=== PATIENT | male | born 1995 | race Caucasian/White ===

== ENCOUNTER 2025-04-24 02:08 | Inpatient (IN) | payer OTHER, SELFPAY ==
[2025-04-24] VITALS (11 sets, daily range): BP systolic 95–168; BP diastolic 50–86; PULSE 57–89; RESP 10–20; TEMP 36.3–37; O2SAT 94–99; BMI 24.4
--- NOTE | 2025-04-24 | ECG_ITS ---
Test Reason : CP Blood Pressure : */* mmHG Vent. Rate : 92 BPM Atrial Rate : 92 BPM P-R Int : 176 ms QRS Dur : 108 ms QT Int : 370 ms P-R-T Axes : 33 62 44 degrees QTcB Int : 457 ms Normal sinus rhythm Normal ECG No previous ECGs available Referred By: Generic ED Physician Electronically Signed By: SABRINA JEREZ MD
--- NOTE | ~2025-04-24 | XR_ITS ---
CLINICAL HISTORY: CHEST PAIN 1 view chest x-ray Comparison: None provided Findings: Portions of the exam are obscured by overlying material. The lungs are clear. Normal size heart. No acute fracture. IMPRESSION: 1. No acute findings. This document has been electronically signed by: Ivan Barkley MD on 04/24/2025 04:11:18
[2025-04-24 02:42] LABS: MANUAL DIFF FLAG NO
--- OUTSIDE RECORDS SUMMARY | 2025-04-24 02:44 | XMS_ITS | Clinical Summary ---
Author Organization [facility] Address [address] [place] [address] Phone Care Team Providers Care Celluloid Trimmer Name Role Phone Osiris De Souza MD Primary Care Provider [phone] Allergies Active Allergy Reactions Criticality Noted Date Comments Amoxicillin Rash 01/02/2016 Doxycycline GI intolerance 08/28/2017 Medications clonazePAM (KlonoPIN) 1 mg tablet Take 0.5 mg by mouth 3 (three) times a day. Max Daily Amount: 1.5 mg 01/15/2024 Active FLUoxetine (PROzac) 40 mg capsule Take 3 capsules (120 mg total) by mouth 1 (one) time each day. 11/18/2024 Active OXcarbazepine (TRILEPTAL) 600 mg tablet Take 2 tablets (1,200 mg total) by mouth. at bedtime Active cholecalciferol (VITAMIN D-3) 25 mcg (1,000 unit) tablet Take 1 tablet (1,000 Units total) by mouth 1 (one) time each day. Active ascorbic acid (VITAMIN C) 500 mg tablet Take 1 tablet (500 mg total) by mouth 1 (one) time each day. Active ferrous gluconate 256 mg (28 mg iron) tablet Take 1 tablet (28 mg total) by mouth. Active MAGNESIUM GLYCINATE ORAL Take by mouth. Active Active Problems Problem Noted Date Diagnosed Date Anxiety 06/30/2014 Constipation 06/30/2014 Depression 06/30/2014 Hx of substance abuse (CMS/[facility] V24, CMS/[facility] V28) 06/30/2014 Speech impediment 06/30/2014 Encounters Date Type Department Care Team Description 02/10/2025 1:15 PM EDT Office Visit [facility] Hematology Oncology [address] [place] [address] Tamara Penaloza MD Microcytic anemia (Primary Dx) from Last 3 Months Surgical History Surgery Date Site/Laterality Comments OTHER SURGICAL HISTORY PROCEDURE: CA WEDGE EXCISION SKIN NAIL FOLD; COMMENT: multiple Medical History Medical History Date Comments Anxiety 06/30/2014 DX:Anxiety PTSD (post-traumatic stress disorder) 06/30/2014 DX:PTSD (post-traumatic stress disorder) Insomnia 06/30/2014 DX:Insomnia OCD (obsessive compulsive disorder) 06/30/2014 DX:OCD (obsessive compulsive disorder) Constipation 06/30/2014 DX:Constipation Depression 06/30/2014 DX:Depression Family history of colon canc er in mother 07/24/2015 DX:Family history of colon c ancer in mother; COMMENT: Mom age 50 with Stage IV. Patient to start screening colonoscopy at age 40. Family History Medical History Relation Name Comments Depression Father ETOH abuse Colon cancer Mother depression, can didiasis Depression Sister 1 Other: CKD Uncle 1 Relation Name Status Comments Father Alive HTN Mother Alive colon cancer di agnosed on her 50's Sister 1 Sister 2 Alive Uncle 1 Uncle 2 Social History Tobacco Use Types Packs/Day Years Used Date Smoking Tobacco: Never Smokeless Tobacco: Never Tobacco Cessation:Counseling Given: Not Answered Alcohol Use Standard Drinks/Week Comments No 0 (1 standard drink = 0.6 oz pur e alcohol) Sex and Gender Information Value Date Recorded Sex Assigned at Male 10/20/2024 3:14 PM EDT Legal Sex Male 10:25 AM EST Gender Identity Male 10/20/2024 3:14 PM EDT Sexual Orientation Not on file Obstetrics History Last Filed Vital Signs Vital Sign Reading Time Taken Comments Blood Pressure 150/69 02/10/2025 1:12 PM EDT Pulse 80 02/10/2025 1:12 PM EDT Temperature 37.1 C (98.7 F) 02/10/2025 1:12 PM EDT Respiratory Rate - - Oxygen Saturation 99% 02/10/2025 1:12 PM EDT Inhaled Oxygen Concentration - - Weight 80.3 kg (177 lb) 02/10/2025 1:12 PM EDT Height 182.9 cm (6') 12/06/2024 3:48 PM EDT Body Mass Index 24.01 12/06/2024 3:48 PM EDT Plan of Treatment Health Maintenance Due Date Last Done Comments DTaP,Tdap,and Td Vaccines (1 - Tdap) 2012 Hepatitis A Vaccines (1 of 2 - Risk 2-dose series) 2012 HPV Vaccines (2 - Male 3-dos e series) 04/01/2016 03/04/2016 Hepatitis B Vaccines (3 of 3 - 19+ 3-dose series) 06/26/2017 05/01/2017, 03/31/2017, 03/04/2016 Depression Screening 08/11/2024 HIV Screening 10/21/2024 Hepatitis C Screening 10/21/2024 Social Influencers of Health Screening 10/21/2024 COVID-19 Vaccine (1 - 2023-2 5 season) 2025 Influenza Vaccine (#1) 2025 HIB Vaccines Aged Out No longer eligi ble based on patient's age to complete this topic IPV Vaccines Aged Out No longer eligi ble based on patient's age to complete this topic MMR Vaccines Aged Out No longer eligi ble based on patient's age to complete this topic Meningococcal ACWY Vaccine Aged Out N o longer eligible based on patient's age to complete this topic Meningococcal B Vaccine Aged Out No l onger eligible based on patient's age to complete this topic Pneumococcal Vaccine: Pediatrics (0 to 5 Years) and At-Risk Patients (6 to 49 Years) Aged Out No longer eligible b ased on patient's age to complete this topic RSV Immunization Patients Under 20 months Aged Out No longer eligible b ased on patient's age to complete this topic Varicella Vaccines Aged Out No longer eligible based on patient's age to complete this topic Insurance [place] - [place] Care Teams Celluloid Trimmer Relationship Specialty Start Date End Date Osiris De Souza MD [address] [place] [id number] PCP - General Internal Medicine 10/20/24
--- OUTSIDE RECORDS SUMMARY | 2025-04-24 02:44 | XMS_ITS | Patient Health Record ---
Author Organization [facility] Address [address] [place] [address] Care Team Providers Care Special Education Instructor Name Role Phone LEE GARCIA Primary Care Provider Jacquelin Patel Unavailable [phone] Allergies Allergen (clinical drug ingredient) Drug/Non Drug Allergy documented on EMR Reaction Allergy Type Onset Date Status amoxicillin Amoxicillin hives Drug Allergy Act moisés doxycycline Doxycycline nausea and vomiting Drug Allergy Active Results Component Value Reference Range Notes HEMOGLOBIN ELECTROPHORESIS Reviewed date:12/09/2024 05:01:08 PM Interpretation: Performing Lab: Notes/Report: Hemoglobin A1 97.9 96.5-97.8 % Hemoglobin A2 2.1 2.2-3.2 % Hemoglobin F 0.0 <2.0 % Hemoglobin S 0.0 0.0 % Hemoglobin C 0.0 0.0 % Interpretation See Below No abnormal hemoglobin variants seen on hemoglobin electrophoresis. Hemoglobin A2 is decreased. Common causes include, but are not limited to, iron deficiency, alpha thalassemia, and delta thalassemia. Test performed at [facility], [address] , [place] [id number] Johanne Dejesus MD, PhD - Agronomy Supervisor IRON AND TIBC Reviewed date:12/07/2024 07:34:44 AM Interpretation: Performing Lab: Notes/Report: Iron 15 50-160 mcg/dL TIBC 450 250-450 mcg/dL Iron Saturation 3 20-50 % FERRITIN Reviewed date:12/07/2024 07:34:40 AM Interpretation: Performing Lab: Notes/Report: Ferritin 15 26-388 ng/mL CBC WITH AUTO DIFFERENTIAL Reviewed date:12/06/2024 05:17:39 PM Interpretation: Performing Lab: Notes/Report: WBC 5.9 4.8-10.8 K/mcL RBC 6.20 4.50-5.50 M/mcL Hemoglobin 12.0 13.5-17.5 g/dL Hematocrit 39.1 42.0-54.0 % MCV 63.6 79.0-98.0 FL MCH 19.5 27.0-32.0 pcg MCHC 30.7 32.0-37.0 g/dL RDW 23.1 11.0-15.0 % Platelets 389 130-400 K/mcL MPV 8.5 7.0-11.0 FL NRBC 0.0 <1.0 % NRBC Absolute 0.00 <0.10 K/mcL Neutrophils Relative 69.5 Lymphocytes Relative 16.8 Monocytes Relative 8.8 Eosinophils Relative 3.1 Basophils Relative 1.5 Immature Granulocytes Relative 0.3 Neutrophils Absolute 4.08 1.50-7.00 K/mcL Lymphocytes Absolute 0.99 1.00-5.00 K/mcL Monocytes Absolute 0.52 0.20-1.00 K/mcL Eosinophils Absolute 0.18 0.00-0.50 K/mcL Basophils Absolute 0.09 0.00-0.20 K/mcL Immature Granulocytes Absolute 0.02 0.00-0.03 K/mcL Comp. Metabolic Panel [id number] Reviewed date:08/09/2024 08:45:55 AM Interpretation: Performing Lab:[facility], [address] [place] [address], [place], Phone - [phone], Director - Yayo Notes/Report: Glucose 95 70-99 mg/dL BUN 15 6-20 mg/dL Creatinine 1.08 0.76-1.27 mg/dL eGFR 94 >59 mL/min/1.73 BUN/Creatinine Ratio 14 9-20 Sodium 140 134-144 mmol/L Potassium 4.6 3.5-5.2 mmol/L Chloride 100 96-106 mmol/L Carbon Dioxide, Total 24 20-29 mmol/L Calcium 9.3 8.7-10.2 mg/dL Protein, Total 6.8 6.0-8.5 g/dL Albumin 4.5 4.1-5.1 g/dL Globulin, Total 2.3 1.5-4.5 g/dL Bilirubin, Total <0.2 0.0-1.2 mg/dL Alkaline Phosphatase 144 44-121 IU/L AST (SGOT) 31 0-40 IU/L Lipid Panel With LDL/HDL Rat [id number] Reviewed date:08/09/2024 08:46:07 AM Interpretation: Performing Lab:[facility], [address] [facility], [place], Phone - [phone], Director - MDSaray Notes/Report: Cholesterol, Total 174 100-199 mg/dL Triglycerides 108 0-149 mg/dL HDL Cholesterol 69 >39 mg/dL VLDL Cholesterol Kaveh 19 5-40 mg/dL LDL Chol Calc ([facility]) 86 0-99 mg/dL LDL/HDL Ratio 1.2 0.0-3.6 ratio LDL/HDL Ratio Men Women 1/2 Avg.Risk 1.0 1.5 Avg.Risk 3.6 3.2 2X Avg.Risk 6.2 5.0 3X Avg.Risk 8.0 6.1 CBC with Diff, Platelet, NLR [id number] Reviewed date:08/26/2024 10:33:03 AM Interpretation: Performing Lab:[facility], [address] [facility], [place], Phone - [phone], Director - MDJodry Notes/Report: WBC 6.2 3.4-10.8 x10E3/uL RBC 5.01 4.14-5.80 x10E6/uL Polychromasia present Elliptocytes present. Few schistocytes. Hemoglobin 7.1 13.0-17.7 g/dL Hematocrit 27.7 37.5-51.0 % MCV 55 79-97 fL MCH 14.2 26.6-33.0 pg MCHC 25.6 31.5-35.7 g/dL RDW 21.7 11.6-15.4 % Platelets 347 150-450 x10E3/uL Neutrophils 44 Not Estab. % Lymphs 39 Not Estab. % Monocytes 8 Not Estab. % Eos 7 Not Estab. % Basos 2 Not Estab. % Neutrophils (Absolute) 2.7 1.4-7.0 x10E3/uL Lymphs (Absolute) 2.4 0.7-3.1 x10E3/uL Neut/Lymph Ratio 1.1 0.0-2.9 ratio Published COVID-19 studies suggest: Low likelihood of severe COVID-19 disease progression 0.0-2.9 High likelihood of severe COVID-19 disease progression >4.9 Monocytes(Absolute) 0.5 0.1-0.9 x10E3/uL Eos (Absolute) 0.4 0.0-0.4 x10E3/uL Baso (Absolute) 0.1 0.0-0.2 x10E3/uL Immature Granulocytes 0 Not Estab. % Immature Grans (Abs) 0.0 0.0-0.1 x10E3/uL Hematology Comments: Note: Verifie d by microscopic examination. Reason For Referral Reason patient has severe O CD abusing antidiarrheals not to stool has abdominal pain and severe constipation please evaluate and treat Diagnosis 1 Constipation, unspec ified (K59.00) Referral Organization [facility] Referring Provider First Name Jacquelin Referring Provider Last Name Jorge Referring Provider Speciality [facility] Referred Provider Specialty Gastroentero logy General Notes Referral was faxed [facility]. Please contact patient for scheduling. Referral Priority Routine Reason Evaluate and Treat Diagnosis 1 Anemia, unspecified (D64.9) Diagnosis 2 Iron deficiency (E61 .1) Referral Organization [facility] Referring Provider First Name LEE Referring Provider Last Name JOSE Referring Provider Speciality [facility] Referred Provider Specialty Hematology General Notes Referral faxed to Dr Roseanna Penaloza's office. Please call patient to schedule. Referral Priority Routine Medications Medication SIG (Take, Route, Frequency, Duration) Notes Start Date End Date Status Tamsulosin HCl 0.4 MG 1 capsule Orally O nce a day Not-Taking Ferrous Sulfate 325 (65 Fe) MG 1 tablet Orally Once a day; Duration: 30 days 09/30/2024 Active OXcarbazepine 600 MG 1 tablet Orally Twi ce a day Active valACYclovir HCl 1 GM 1 tablet Orally On ce a day Not-Taking FLUoxetine HCl 40 MG 1 capsule Orally thrice a day Active clonazePAM 0.5 MG 1 tablet Orally thri ce a day Active Problems Problem Type SNOMED Code ICD Code Onset Dates Problem Status W/U Status Risk Notes Problem Anemia (147570923) Anemia, unspecified (D64.9) Active confirmed Problem Constipation (09970734) Constipation, unspecified (K59.00) Active confirmed Problem Generalized anxiety disorder (81336227) DEQUAN (generalized anxiety disorder) (F41.1) Active confirmed Problem Recurrent major depression (00870002) Episode of recurrent major depressive disorder, unspecified depression episode severity (F33.9) Active confirmed Vital Signs Heart Rate 78 /min 07/28/2024 Temperature 97.3 degrees Fahrenheit 07/28/2024 Oximetry 99 % 07/28/2024 Blood pressure diastolic 65 mm Hg 07/28/2024 Height 6'0 in 07/28/2024 Blood pressure systolic 130 mm Hg 07/28/2024 Weight 178.9 lbs 07/28/2024 BMI 24.26 kg/m2 07/28/2024 Encounters Encounter Location Date Provider Diagnosis [address] [place] [address] 07/28/2024 Jacquelin Patel Annual physical exam Z00.00 ; DEQUAN (generalized anxiety disorder) F41.1 and Episode of recurrent major depressive disorder, unspecified depression episode severity F33.[address] [place] [address] 08/26/2024 HOWARD GUL Anemia, unspecified D64.9 and Iron deficiency E61.[address] [place] [address] 09/17/2024 HOWARD GUL [address] [place] [address] 09/29/2024 HOWARD GUL Assessments Encounter Date Diagnosis (ICD Code) Assessment Notes Treatment Notes Treatment Clinical Notes Section Notes 07/28/2024 Annual physical exam (ICD-10 - Z00.00) 29-year-old gentleman with history of anxiety depression psychogenic stuttering PTSD is here today for a new PCP visit and general physical exam. Hypertension screening blood pressure is stable we will check a basic metabolic panel appeared Hyperlipidemia we will check a lipid profile Major depression psychogenic stuttering, PTSD, severe OCD treatment resistant, he is followed by a psychiatrist Dr. Singer on [facility] and has been prescribed clonazepam, oxcarbazepine and fluoxetine we have advised a therapist. Will defer to his psychiatrist for further recommendations. Severe constipation patient has OCD about contamination, he states that he was taking multiple antidiarrheal to make himself constipated and to avoid any kind of stooling. He gets to the state where he is vomiting. I have discussed with him about stopping any kind of antidiarrheals/Im odium. He believes that his abdominal muscles are weak and cannot push out soft stool and he has to make them harden. He also is requesting a GI referral which we will complete today Preventive care Covid vaccinated --2 2021 Tdap yes Flu declines Anxiety and depression PHQ 9 is 4 eye exam is planning to go one Dentist No All questions were answered today 08/26/2024 Anemia, unspecified (ICD-10 - D64.9) 08/26/2024 Iron deficiency (ICD-10 - E61.1) 07/28/2024 DEQUAN (generalized anxiety disorder) (ICD-10 - F41.1) 29-year-old gentleman with history of anxiety depression psychogenic stuttering PTSD is here today for a new PCP visit and general physical exam. Hypertension screening blood pressure is stable we will check a basic metabolic panel appeared Hyperlipidemia we will check a lipid profile Major depression psychogenic stuttering, PTSD, severe OCD treatment resistant, he is followed by a psychiatrist Dr. Singer on [facility] and has been prescribed clonazepam, oxcarbazepine and fluoxetine we have advised a therapist. Will defer to his psychiatrist for further recommendations. Severe constipation patient has OCD about contamination, he states that he was taking multiple antidiarrheal to make himself constipated and to avoid any kind of stooling. He gets to the state where he is vomiting. I have discussed with him about stopping any kind of antidiarrheals/Im odium. He believes that his abdominal muscles are weak and cannot push out soft stool and he has to make them harden. He also is requesting a GI referral which we will complete today Preventive care Covid vaccinated --2 2021 Tdap yes Flu declines Anxiety and depression PHQ 9 is 4 eye exam is planning to go one Dentist No All questions were answered today 07/28/2024 Episode of recurrent major depressive disorder, unspecified depression episode severity (ICD-10 - F33.9) 29-year-old gentleman with history of anxiety depression psychogenic stuttering PTSD is here today for a new PCP visit and general physical exam. Hypertension screening blood pressure is stable we will check a basic metabolic panel appeared Hyperlipidemia we will check a lipid profile Major depression psychogenic stuttering, PTSD, severe OCD treatment resistant, he is followed by a psychiatrist Dr. Singer [facility] and has been prescribed clonazepam, oxcarbazepine and fluoxetine we have advised a therapist. Will defer to his psychiatrist for further recommendations. Severe constipation patient has OCD about contamination, he states that he was taking multiple antidiarrheal to make himself constipated and to avoid any kind of stooling. He gets to the state where he is vomiting. I have discussed with him about stopping any kind of antidiarrheals/Im odium. He believes that his abdominal muscles are weak and cannot push out soft stool and he has to make them harden. He also is requesting a GI referral which we will complete today Preventive care Covid vaccinated --2 2021 Tdap yes Flu declines Anxiety and depression PHQ 9 is 4 eye exam is planning to go one Dentist No All questions were answered today Plan Of Treatment Pending Test Test Name Order Date [id number] 08/26/2024 [id number] 08/26/2024 Haptoglobin-[id number] 08/26/2024 Ferritin-[id number] 08/26/2024 Reticulocyte Count-[id number] 08/26/2024 Next Appt Details Provider Name:Jacquelin Patel, 1 09/29/2024 02:30:00 PM, [address] [place] [address] [address], [place], [address], Medical (General) History Medical History History ICD Code anxiety disorder Major depression and treatment Psychogenic stuttering Severe OCD treatment resistant Severe constipated due to overusing of a ntidiarrheals due to OCD Surgical History Surgery Date(Month/Year) ingrown nail removal
[2025-04-24 02:53] LABS: Hematocrit 35.5 % (42.0-52.0); Hemoglobin 12.6 g/dl (14.0-18.0); Imm Gran Abs Auto 0.02 X10*3/uL (0.00-0.03); Imm Gran Pct Auto 0.2 % (0.0-0.4); Lymphocytes Absolute Auto 2.0 X10*3/uL (1.2-4.9); Mean Corpuscular HGB Conc 35.5 g/dl (31.0-36.0); Mean Corpuscular Hemoglobin 24.8 pg (27.0-33.0); Mean Corpuscular Volume 69.9 fL (80.0-98.0); NRBC Abs Auto 0.000 X10*3/uL (0.0-0.012); NRBC Pct Auto 0.0 /100WBC (0.0-0.2); Platelet Count 269 X10*3/uL (160-400); Red Blood Count 5.08 X10*6/uL (4.60-5.80); White Blood Count 8.8 X10*3/uL (4.8-10.8)
[2025-04-24 03:13] LABS: Troponin-I High Sensitivity < 2.7 ng/L (<3.5-35.0)
[2025-04-24 03:16] LABS: Alanine Aminotransferase 45 U/L (0-40); Albumin Level 4.5 g/dL (3.5-5.0); Alkaline Phosphatase 113 U/L (39-117); Anion Gap 12 (12-20); Aspartate Amino Transferase 34 U/L (5-37); Blood Urea Nitrogen 10 mg/dL (9-16); Calcium 9.0 mg/dL (8.4-10.2); Carbon Dioxide 25 mmol/L (22-29); Chloride 86 mmol/L (96-108); Creatinine Clr Calc Pharmacy 130.7; Estimated Glomerular Filt Rate > 60; Potassium 4.0 mmol/L (3.3-5.1); Sodium 119 mmol/L (135-145); Total Protein 6.9 g/dL (6.5-8.0)
[2025-04-24 03:45] LABS: Appearance Urine Clear; Glucose Urine UA Negative (Negative); PH 7.0 (5.0-9.0); Specific Gravity - Urine <= 1.005 (1.005-1.025)
--- NOTE | 2025-04-24 03:51 | ED_ITS ---
HPI - General Adult General Chief complaint: General Medical Stated complaint: multi issues Time Seen by Provider: 04/24/25 03:23 Source: patient Mode of arrival: ambulatory Limitations: no limitations History of Present Illness ED Provider: DR. Steele HPI narrative: 30-year-old male with history of mental health issue came in for evaluation of multiple symptoms, chest pain started since yesterday, patient also complaining of bilateral lower extremity swelling that Started over a month ago No recent travel, no recent prolonged immobilization, no history of DVT / PE., patient admit to drinking plenty of water a day 1-1.5 gal a day that cause him to urinate frequently. Otherwise patient declined SOB, abdominal pain, nausea, vomiting, diarrhea . Related Data Allergies Allergy/AdvReac Type Severity Reaction Status Date / Time amoxicillin Allergy Rash Verified 04/24/25 02:27 doxycycline AdvReac Vomiting Verified 04/24/25 02:27 Review of Systems 2 Review of Systems: All other systems are reviewed and are negative Constitutional: Reports as per HPI and Reports no additional constitutional complaints Eyes: Reports as per HPI and Reports no additional eye complaints Reports system reviewed and no additional complaints, except as documented Cardiovascular: Reports as per HPI and Reports no additional cardiovascular complaints Respiratory: Reports as per HPI and Reports no additional respiratory complaints Gastrointestinal: Reports as per HPI and Reports no additional gastrointestinal complaints Genitourinary: Reports no additional female genitourinary complaints Musculoskeletal: Reports no additional musculoskeletal complaints Skin/Breast: Reports system reviewed and no additional complaints, except as docu Psychiatric: Reports no additional psychiatric complaints Endocrine: Reports no additional endocrine complaints Hematologic/Lymphatic: Reports no additional hematologic/lymphatic complaints Allergic/Immunologic: Reports no additional allergic/immunologic complaints Reports system reviewed and no additional complaints, except as documented and Reports Abnormal speech present [facility] Social History Social History Alcohol intake: former Smoked in Last 30 Days: No Use of substances other than those prescribed or required for medical reasons: No Advance Directives: No Physical Exam ED Vital Signs: Vital Signs - 24 hr 04/24/25 02:17 04/24/25 04:34 04/24/25 05:59 Temperature 98.6 F 98.0 F 97.7 F Pulse Rate 89 69 69 Respiratory Rate 18 14 17 Blood Pressure 168/86 H 133/77 142/67 H Pulse Oximetry 98 97 98 Oxygen Delivery Method Room Air Room Air Room Air BMI result Body Mass Index 24.4 Vital signs have been reviewed and appear to be correct. Blood pressure elevated. Heart rate normal. Respiratory rate normal. Temperature normal. Oxygen saturation normal. Appearance: Alert. Oriented X3. No acute distress. Head: Normal external exam. Normocephalic. Atraumatic. No Woody signs noted. No raccoon eyes noted Eyes: PERRLA. EOMI. Conjunctiva and sclera normal. Eyelids normal. ENT: TM's Normal. Pharynx normal. Uvula midline. Moist mucous membranes. No trismus noted. No drooling noted. No muffled voice noted. Neck: Normal inspection. Neck supple. FROM. No adenopathy. Thyroid Normal. No meningeal signs. No neck mass noted. CVS: Normal heart rate and rhythm. Heart sound normal. No murmurs noted. Pulses normal throughout. Respiratory: No respiratory distress. Painless inspiration. Breath sounds normal. No wheezes/rales/rhonchi noted. Chest nontender. No accessory muscle usage noted or decreased air movement noted. Abdomen: Soft and nontender. Bowel sounds normal in all 4 quadrants. No distention noted. No organomegaly noted. No visible injury noted. Back: No CVA tenderness. Full range of motion noted. Skin: Skin warm and dry. Normal skin color. Normal skin turgor. No rashes/lesions/lacerations noted. Extremities: No lower extremity edema. Extremities exhibit normal range of motion. Extremities nontender. Neuro: Oriented X 3. Cranial nerve exam: II-XII are grossly intact No motor deficit. No sensory deficit. Reflexes normal. 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 Will slowly correct hyponatremia with normal saline at 75 cc/hour. Originally came in for evaluation of chest pain and lower extremity swelling unremarkable EKG/troponin /D-dimer. Patient will need an admission. Time: 06:04 Medications Administered Discontinued Medications Generic Name Dose Route Start Last Admin Trade Name Freq PRN Reason Stop Dose Admin Sodium Chloride 1,000 mls @ 999 mls/hr 04/24/25 03:23 04/24/25 03:52 Ns IV 04/24/25 04:23 999 mls/hr .Q1H1M ONE Administration Medical Decision Making Differential Diagnosis Differential Diagnoses: The differential diagnosis associated with the presentation includes ( psychogenic polydipsia hyponatremia, electrolyte derangement, severe anemia, ACS, Pulmonary embolism.) Admission/Observation Consideration of admission/observation: Escalation of care including admission/observation considered Consult Healthcare Provider Management of the patient was discussed with: Hospitalist ( Dr. Romero) Lab Data MDM Lab Attestation statement: I reviewed the patient's lab results. 04/24/25 02:36 04/24/25 02:36 Labs: Lab Results 04/24/25 04/24/25 04/24/25 Range/Units 02:36 03:38 04:06 WBC 8.8 (4.8-10.8) X10*3/uL RBC 5.08 (4.60-5.80) X10*6/uL Hgb 12.6 L (14.0-18.0) g/dl Hct 35.5 L (42.0-52.0) % MCV 69.9 L (80.0-98.0) fL MCH 24.8 L (27.0-33.0) pg MCHC 35.5 (31.0-36.0) g/dl RDW 14.8 (11.0-16.0) % Plt Count 269 (160-400) X10*3/uL MPV 7.9 L (9.4-12.4) fL Immature Gran % (Auto) 0.2 (0.0-0.4) % Neut % (Auto) 64.1 (45-73) % Lymph % (Auto) 23.3 (20-40) % [place] % (Auto) 8.9 (2-11) % Eos % (Auto) 2.6 (0-4) % Baso % (Auto) 0.9 (0-2) % Lymph # (Auto) 2.0 (1.2-4.9) X10*3/uL [place] # (Auto) 0.8 (0.1-1.2) X10*3/uL Eos # (Auto) 0.2 (0.0-0.4) X10*3/uL Baso # (Auto) 0.1 (0.0-0.2) X10*3/uL Abs Immat Gran (auto) 0.02 (0.00-0.03) X10*3/uL Absolute Neuts (auto) 5.6 (2.0-8.3) x10*3/uL Absolute Nucleated RBC 0.000 (0.0-0.012) X10*3/uL Nucleated RBC % (auto) 0.0 (0.0-0.2) /100WBC D-Dimer High Sensitivty < 150 NG/ML Sodium 119 L* (135-145) mmol/L Potassium 4.0 (3.3-5.1) mmol/L Chloride 86 L (96-108) mmol/L Carbon Dioxide 25 (22-29) mmol/L Anion Gap 12 (12-20) BUN 10 (9-16) mg/dL Creatinine 0.89 (0.5-1.4) mg/dL Estim Creat Clear Calc 130.7 Estimated GFR > 60 Random Glucose 108 (60-115) mg/dL Calcium 9.0 (8.4-10.2) mg/dL Total Bilirubin 0.4 (0.0-1.0) mg/dL AST 34 (5-37) U/L ALT 45 H (0-40) U/L Alkaline Phosphatase 113 (39-117) U/L Troponin I High Sens < 2.7 (<3.5-35.0) ng/L Total Protein 6.9 (6.5-8.0) g/dL Albumin 4.5 (3.5-5.0) g/dL Urine Color Yellow Urine Appearance Clear Urine pH 7.0 (5.0-9.0) Ur Specific [place] <= 1.005 (1.005-1.025) Urine Protein Negative (Neg-Trace) mg/dL Urine Glucose (UA) Negative (Negative) mg/dL Urine Ketones Negative (Negative) mg/dL Urine Blood Negative (Negative) Urine Nitrite Negative (Negative) Ur Leukocyte Esterase Negative (Negative) Urine Osmolality 95 L (373-1093) mosm/kg Ur Random Sodium 20.0 mmol/L Ur Random Potassium 3.6 mmol/L Ur Random Chloride < 20.0 mmol/L Ethyl Alcohol < 10 mg/dL Independent Interpretation I performed an independent interpretation of an: Plain X-Ray ( chest: No acute findings.) Radiology Impression Discussion of test interpretation with radiology: I have reviewed the radiologist's reading. Critical Care Time Critical Care Time Critical Care Time: Yes Total Critical Care Time: 40 Attestation: The patient was critically ill with a high probability of imminent or life- threatening deterioration. I spent greater than 30 minutes of discontinuous time evaluating the patient, delivering critical care at the bedside, discussing evaluating data with consultants. Critical care time does not include time spent performing separately billable procedures or teaching. Time spent performing critical care was 40 minutes. Discharge Plan Discharge Clinical Impression: Acute hyponatremia Patient Disposition: Admitted As Inpatient Print Language: Bulgarian
[2025-04-24 04:33] LABS: D Dimer High Sensitivity < 150 NG/ML
[2025-04-24 06:16] LABS: Anion Gap 13 (12-20); Blood Urea Nitrogen 10 mg/dL (9-16); Calcium 8.7 mg/dL (8.4-10.2); Carbon Dioxide 23 mmol/L (22-29); Chloride 92 mmol/L (96-108); Creatinine Clr Calc Pharmacy 153.1; Estimated Glomerular Filt Rate > 60; Potassium 4.0 mmol/L (3.3-5.1); Sodium 124 mmol/L (135-145)
--- NOTE | 2025-04-24 07:16 | PM.IMHP ---
History of Present Illness Date of Service: 04/24/25 Chief Complaint: leg edema 30-year-old man presented to the ER with complaints of chest pain, lower extremity swelling. He reports that the chest pain started about 2 years ago. It is substernal pain that is worse with activity, no radiation, associated with some shortness of breath with exercise. He reported that he has seen his primary care physician for this and there has been no further follow up. He also reported intermittent right flank pain over the last 2 years as well and again has seen his primary care provider for this. He reported that he started having some leg edema approximately a month ago with no other symptoms. He reported that he does drink a gal to a gal and a half of water a day and has been doing that for many years. He denied any history of hyponatremia previously. He denied any recent travel, prolonged immobilization, history of DVT or PE. He does have a history of depression and is on multiple medications. Initial sodium in the ER was 119, he was started on normal saline with rise of sodium to 124. Urine osmolality 95. Plan is to admit patient for further management and treatment of acute hyponatremia. Review of Systems Review of Systems: Denies any recent fever chills or decrease in appetite respiratory denies any shortness of breath or cough cardiovascular see HPI gastrointestinal denies any dysphagia abdominal pain nausea vomiting or diarrhea genitourinary denies any dysuria frequency or hematuria musculoskeletal denies any joint pain or swelling neuropsych denies any weakness or seizures all other systems reviewed are negative [facility] Medical History (Updated 04/24/25 @ 07:54 by Mallorie Coreas NP) PTSD (post-traumatic stress disorder) OCD (obsessive compulsive disorder) Depression Family History (Updated 04/24/25 @ 07:55 by Mallorie Coreas NP) Mother Colon cancer Surgical History (Updated 04/24/25 @ 07:55 by Mallorie Coreas NP) No pertinent past surgical history Social History Alcohol intake: former Smoked in Last 30 Days: No Use of substances other than those prescribed or required for medical reasons: No Advance Directives: No Meds Allergies Allergy/AdvReac Type Severity Reaction Status Date / Time amoxicillin Allergy Rash Verified 04/24/25 02:27 doxycycline AdvReac Vomiting Verified 04/24/25 02:27 Active Medications: Current Medications Sodium Chloride (Ns) 1,000 mls @ 75 mls/hr IVCONT .[id number] [place] Last Admin: 04/24/25 06:03 Dose: 75 mls/hr Home Medications ?Medication ?Instructions ?Recorded ?Confirmed ?Last Taken ?Type clonazepam 0.5 mg tablet 0.5 mg PO TID PRN Anxiety 04/24/25 04/24/25 04/23/25 History fluoxetine 40 mg capsule 120 mg PO DAILY 04/24/25 04/24/25 Unknown History loperamide 2 mg capsule 10 mg PO DAILY 04/24/25 04/24/25 Unknown History oxcarbazepine 600 mg tablet 1,200 mg PO BEDTIME 04/24/25 04/24/25 Unknown History trazodone 100 mg tablet 100 mg PO BEDTIME 04/24/25 04/24/25 Unknown History Physical Exam Vital Signs and Narrative: Vital Signs: Last Vital Signs Temp 97.7 F 04/24/25 05:59 Pulse 69 04/24/25 05:59 Resp 17 04/24/25 05:59 BP 142/67 H 04/24/25 05:59 Pulse Ox 98 04/24/25 05:59 O2 Del Method Room Air 04/24/25 05:59 BMI result Body Mass Index 24.4 Appearing in no acute distress head is normocephalic atraumatic eyes pupils are PERRLA sclera is anicteric mouth throat mucous membranes are intact and moist neck is supple no lymphadenopathy, no JVD noted lung sounds are clear to auscultation heart regular rate rhythm, clear S1, S2 positive bowel sounds, abdomen is soft, nontender neuro patient is alert x3, no focal deficits Results Labs 04/24/25 02:36 04/24/25 11:08 Labs: Laboratory Results - last 24 hr 04/24/25 04/24/25 04/24/25 02:36 03:38 04:06 MCV 69.9 L MCH 24.8 L MCHC 35.5 RDW 14.8 Plt Count 269 MPV 7.9 L Immature Gran % (Auto) 0.2 Neut % (Auto) 64.1 Lymph % (Auto) 23.3 [place] % (Auto) 8.9 Eos % (Auto) 2.6 Baso % (Auto) 0.9 Lymph # (Auto) 2.0 [place] # (Auto) 0.8 Eos # (Auto) 0.2 Baso # (Auto) 0.1 Abs Immat Gran (auto) 0.02 Absolute Neuts (auto) 5.6 Absolute Nucleated RBC 0.000 Nucleated RBC % (auto) 0.0 D-Dimer High Sensitivty < 150 Anion Gap 12 Estim Creat Clear Calc 130.7 Estimated GFR > 60 Random Glucose 108 Calcium 9.0 Total Bilirubin 0.4 AST 34 ALT 45 H Alkaline Phosphatase 113 Total Protein 6.9 Albumin 4.5 Urine Color Yellow Urine Appearance Clear Urine pH 7.0 Ur Specific [place] <= 1.005 Urine Protein Negative Urine Glucose (UA) Negative Urine Ketones Negative Urine Blood Negative Urine Nitrite Negative Ur Leukocyte Esterase Negative Urine Osmolality 95 L Ur Random Sodium 20.0 Ur Random Potassium 3.6 Ur Random Chloride < 20.0 Ethyl Alcohol < 10 04/24/25 05:59 MCV MCH MCHC RDW Plt Count MPV Immature Gran % (Auto) Neut % (Auto) Lymph % (Auto) [place] % (Auto) Eos % (Auto) Baso % (Auto) Lymph # (Auto) [place] # (Auto) Eos # (Auto) Baso # (Auto) Abs Immat Gran (auto) Absolute Neuts (auto) Absolute Nucleated RBC Nucleated RBC % (auto) D-Dimer High Sensitivty Anion Gap 13 Estim Creat Clear Calc 153.1 Estimated GFR > 60 Random Glucose 94 Calcium 8.7 Total Bilirubin AST ALT Alkaline Phosphatase Total Protein Albumin Urine Color Urine Appearance Urine pH Ur Specific [place] Urine Protein Urine Glucose (UA) Urine Ketones Urine Blood Urine Nitrite Ur Leukocyte Esterase Urine Osmolality Ur Random Sodium Ur Random Potassium Ur Random Chloride Ethyl Alcohol Assessment and Plan (1) Acute hyponatremia: Status: Acute Plan 30 year 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,Psychogenic polydipsia Patient reported drinking 1-1-1/2 gal of water a day with frequent urination Started on normal saline at 75 an hour with slow rise in sodium, stopped due to rapid overcorrection started on D5W as per nephro attending, received Desmopressin On multiple psychiatric medications that can cause hyponatremia, hold for now Hypotension likely from Desmopressin now corrected after albumin follow BP Chest pain and flank pain Patient reported this for approximately 2 years, has seen his PCP with no further workup recommended Normal troponin, normal EKG, normal QTC Chest x-ray with no acute changes Normal renal function Reported lower extremity edema No edema noted on examination No complaints of pain D-dimer less than 150 Microcytic anemia No obvious blood loss Check iron studies History of depression/OCD/PTSD On multiple medications DVT prophylaxis with Lovenox Full code Quality Stroke Does the patient have a stroke diagnosis?: No VTE Prior VTE?: No VTE Risk Level:: Medical - moderate - high VTE Device Contraindication: Treatment Not Indicated VTE Drug Contraindication: N/A - Med Ordered
[2025-04-24 08:26] LABS: Iron 65 mcg/dL (45-160); Percent Iron Saturation 18 % (15-50); Total Iron Binding Capacity 359 mcg/dL (228-428); Unsaturated Iron Binding 294 ug/dL
[2025-04-24 09:00] LABS: Sodium 130 mmol/L (135-145)
--- NOTE | 2025-04-24 09:51 | PHA.MEDREC ---
Addendum entered by Nasir Mckinley, Radha 04/24/25 10:34: MED REC CHECKED BY [facility] Original Note: Pharmacy Consult ? Medication Reconciliation Pharmacy has completed the medication reconciliation. Confirmed medication list with patient.
--- NOTE | 2025-04-24 09:54 | PC.NURSE ---
assumed care of patient at 0700, patient is awake, alert and oriented x4. patient had 50ml/hr NS running ordered changed now has D5 running at 75ml/hr per MAR. patient medicated per MAR with desmopressin, awaiting blood draw per Dr King 30 min post ddvap admin. patient has voided a total of 2200ml clear yellow urine this morning, uses bedside urinal.
[2025-04-24 11:20] LABS: Sodium 130 mmol/L (135-145)
[2025-04-24 11:26] LABS: Anion Gap 9 (12-20); Blood Urea Nitrogen 10 mg/dL (9-16); Calcium 8.6 mg/dL (8.4-10.2); Carbon Dioxide 24 mmol/L (22-29); Chloride 100 mmol/L (96-108); Creatinine Clr Calc Pharmacy 166.2; Estimated Glomerular Filt Rate > 60; Potassium 4.0 mmol/L (3.3-5.1); Sodium 129 mmol/L (135-145)
[2025-04-24] MEDS: Albumin Human 25 % 100 ML 133.33 ML IV ×2 (11:36→12:34)
--- NOTE | 2025-04-24 11:38 | PC.NURSE ---
patient had x2 hypotensive episode, patient is awake and alert, states he feels tired. patient appears drowsy. inpatient attending made aware, came to bedside to eval patient. patient being referred to Dr arias for further recommendation for patient care.
--- NOTE | 2025-04-24 13:30 | PC.NURSE ---
patient sitting up and eating lunch
--- NOTE | 2025-04-24 14:49 | PC.NURSE ---
patient fluids paused per inpatient provider request
--- NOTE | 2025-04-24 14:58 | PM.CNNEP ---
History of Present Illness Reason for Consult Consult date: 04/24/25 Reason for consult: Hyponatremia Chief Complaint Chief complaint: hyponatremia History of Present Illness Narrative: 30-year-old male with PMH of some psychiatric disturbances for which he is on multiple medications he is a poor historian, nephrology consulted for the management of hyponatremia. He lives mostly on water, drinks about 1-1.5 gal of water along with coffee and other liquids during the day. His diet is very limited eats a sandwich early in the morning and a small amount of dinner late in the night around midnight. He does not remember to have his sodium checked in the past, presented with edema of lower extremities. This morning he presented with sodium of 119, received a L of NS and he stopped drinking water his sodium quickly louis to 124 and then 130 by 08:00. He received a dose of DDAVP, started on D5W at 75cc/hr. He also had about 2.5 L of urine output between 8-10 a.m. and his lower extremity swelling is gone. Review of Systems Review of Systems Const : no body aches, no chills, no excessive sweating and no fatigue Eyes: no blurry vision and no change in vision ENT: no bleeding gums and no change in voice, no dizziness Card: no chest pain, ?no shortness of breath, no orthopnea, no PND, + edema Resp: no cough, ?no excessive phlegm production, no SOB GI: no abdominal pain and no nausea, no vomiting, decreased appetite : no hematuria, +urinary frequency and no difficulty voiding Musc: no abnormal gait, no bone pain Neuro: no ?abnormal movements, no weakness, no dizziness, no abnormal gait and no behavioral changes Psych: no behavioral changes and no change in appetite Endo: no change in body appearance, no cold intolerance PMFSH Past Medical History Medical History (Updated 04/24/25 @ 07:54 by Mallorie Coreas NP) PTSD (post-traumatic stress disorder) OCD (obsessive compulsive disorder) Depression Family History Family History (Updated 04/24/25 @ 07:55 by Mallorie Coreas NP) Mother Colon cancer Surgical History Surgical History (Updated 04/24/25 @ 07:55 by Mallorie Coreas NP) No pertinent past surgical history Social History Social History Alcohol intake: former Smoked in Last 30 Days: No Use of substances other than those prescribed or required for medical reasons: No Advance Directives: No Meds Allergies Allergy/AdvReac Type Severity Reaction Status Date / Time amoxicillin Allergy Rash Verified 04/24/25 02:27 doxycycline AdvReac Vomiting Verified 04/24/25 02:27 Active Medications: Current Medications Acetaminophen (Acetaminophen 325 Mg Tablet) 650 mg PO Q6H PRN PRN Reason: Pain, Mild 1-3,fever,headache Calcium Carbonate (Calcium Carbonate 750 Mg Tab.Chew) 750 mg PO Q4H PRN PRN Reason: Heartburn Enoxaparin Sodium (Enoxaparin Sodium 40 Mg/0.4 Ml Syringe) 40 mg SUBCUT Q24H [facility] Last Admin: 04/24/25 07:49 Dose: 40 mg Dextrose (D5w) 1,000 mls @ 75 mls/hr IVCONT .[id number] [facility] Last Infusion: 04/24/25 14:47 Dose: 0 mls/hr Magnesium Hydroxide (Milk Of Magnesia 30 Ml Oral.Susp) 30 ml PO DAILY PRN PRN Reason: Constipation Melatonin (Melatonin 3 Mg Tablet) 6 mg PO BEDTIME PRN PRN Reason: Insomnia Ondansetron HCl (Ondansetron Hcl 4 Mg/2 Ml Vial) 4 mg IVPUSH Q8H PRN PRN Reason: Nausea and Vomiting Sodium Chloride (0.9 % Sodium Chloride Flush 3 Ml Syringe) 3 ml IVFLUSH QSHIFT [facility] Last Admin: 04/24/25 07:35 Dose: Not Given Home Medications ?Medication ?Instructions ?Recorded ?Confirmed ?Last Taken ?Type clonazepam 0.5 mg tablet 0.5 mg PO TID PRN Anxiety 04/24/25 04/24/25 04/23/25 History fluoxetine 40 mg capsule 120 mg PO DAILY 04/24/25 04/24/25 Unknown History loperamide 2 mg capsule 10 mg PO DAILY 04/24/25 04/24/25 Unknown History oxcarbazepine 600 mg tablet 1,200 mg PO BEDTIME 04/24/25 04/24/25 Unknown History trazodone 100 mg tablet 100 mg PO BEDTIME 04/24/25 04/24/25 Unknown History Physical Exam Vital Signs: Last Vital Signs Temp 97.9 F 04/24/25 12:09 Pulse 64 04/24/25 14:09 Resp 14 04/24/25 14:09 BP 115/59 L 04/24/25 14:09 Pulse Ox 97 04/24/25 14:09 O2 Del Method Room Air 04/24/25 14:09 BMI result Body Mass Index 24.4 General: Young male in no acute distress Nutritional Appearance: well nourished and overweight Eyes: appearance normal, both eyes and all related structures; Alignment and Position: alignment normal and position normal Neck: No lymphadenopathy, no thyromegaly Resp: bilateral air entry equal, occasional added sounds present Cardio: Regular rate, regular rhythm; Heart sounds: S1 normal heart sound present and S2 normal heart sound present, no edema GI: soft, nontender, no guarding, no hepatosplenomegaly : bladder normal to inspection, bladder normal to palpation, no renal angle tenderness Skin: no rashes or lesions noted and elasticity normal Neuro: oriented to person, oriented to place, oriented to time and moves all extremities Results Lab Results 04/24/25 02:36 04/24/25 11:08 Lab results: Chemistry 04/24/25 04/24/25 04/24/25 02:36 05:59 08:40 Sodium 119 L* 124 L 130 L Potassium 4.0 4.0 Carbon Dioxide 25 23 BUN 10 10 Creatinine 0.89 0.76 Calcium 9.0 8.7 04/24/25 04/24/25 11:08 11:08 Sodium 130 L 129 L Potassium 4.0 Carbon Dioxide 24 BUN 10 Creatinine 0.70 Calcium 8.6 Hematology 04/24/25 02:36 WBC 8.8 Hgb 12.6 L Plt Count 269 Urinalysis 04/24/25 03:38 Urine Color Yellow Urine Appearance Clear Urine pH 7.0 Ur Specific [place] <= 1.005 Urine Protein Negative Urine Glucose (UA) Negative Urine Ketones Negative Urine Blood Negative Urine Nitrite Negative Ur Leukocyte Esterase Negative Urine Studies 04/24/25 03:38 Urine Osmolality 95 L Assessment and Plan (1) Acute hyponatremia: Status: Acute Plan Acute hyponatremia: His urine sodium is less than 20, urine Osmo less than 100 and given the history of excessive water ingestion without much solute intake suggest that his hyponatremia secondary to polydipsia and very poor osmolar intake. Advised him to drink less water and habit least 3 meals a day with good amount of osmolar ingestion. This morning his sodium increased from 119 to 130 upon giving him normal saline in the ED and fluid restriction. Immediately DDAVP was given to prevent further rise in the sodium levels and he is started on D5 water. We will check the BMP q.4 hours, if the sodium trends to increase we can increase the rate of D5 water to 150 an hour and also can give him another dose of DDAVP His urine output has decreased significantly after DDAVP, his blood pressures are stable. Procedures Date of Service Date of Service: 04/24/25
[2025-04-24 15:51] LABS: Sodium 131 mmol/L (135-145)
[2025-04-24 15:57] LABS: Anion Gap 14 (12-20); Blood Urea Nitrogen 10 mg/dL (9-16); Calcium 9.1 mg/dL (8.4-10.2); Carbon Dioxide 23 mmol/L (22-29); Chloride 99 mmol/L (96-108); Creatinine Clr Calc Pharmacy 132.2; Estimated Glomerular Filt Rate > 60; Potassium 4.5 mmol/L (3.3-5.1); Sodium 131 mmol/L (135-145)
[2025-04-24 20:00] LABS: Sodium 129 mmol/L (135-145)
[2025-04-24 20:04] LABS: Anion Gap 13 (12-20); Blood Urea Nitrogen 12 mg/dL (9-16); Calcium 9.2 mg/dL (8.4-10.2); Carbon Dioxide 22 mmol/L (22-29); Chloride 100 mmol/L (96-108); Creatinine Clr Calc Pharmacy 143.7; Estimated Glomerular Filt Rate > 60; Potassium 4.6 mmol/L (3.3-5.1); Sodium 130 mmol/L (135-145)
[2025-04-24] MEDS: 0.9 % Sodium Chloride Flush 3 ML SYRINGE IVFLUSH (22:32)
[2025-04-25 00:07] LABS: Sodium 133 mmol/L (135-145)
[2025-04-25 01:30] LABS: Anion Gap 13 (12-20); Blood Urea Nitrogen 13 mg/dL (9-16); Calcium 8.9 mg/dL (8.4-10.2); Carbon Dioxide 23 mmol/L (22-29); Chloride 100 mmol/L (96-108); Creatinine Clr Calc Pharmacy 145.5; Estimated Glomerular Filt Rate > 60; Potassium 4.1 mmol/L (3.3-5.1)
[2025-04-25 02:52] VITALS: BP 128/69; PULSE 63; RESP 19; TEMP 36.4; O2SAT 98
[2025-04-25 07:00] LABS: Hematocrit 36.6 % (42.0-52.0); Hemoglobin 12.3 g/dl (14.0-18.0); Mean Corpuscular HGB Conc 33.6 g/dl (31.0-36.0); Mean Corpuscular Hemoglobin 24.6 pg (27.0-33.0); Mean Corpuscular Volume 73.3 fL (80.0-98.0); NRBC Abs Auto 0.000 X10*3/uL (0.0-0.012); NRBC Pct Auto 0.0 /100WBC (0.0-0.2); Platelet Count 250 X10*3/uL (160-400); Red Blood Count 4.99 X10*6/uL (4.60-5.80); White Blood Count 7.2 X10*3/uL (4.8-10.8)
[2025-04-25 07:17] LABS: Anion Gap 11 (12-20); Blood Urea Nitrogen 14 mg/dL (9-16); Calcium 8.9 mg/dL (8.4-10.2); Carbon Dioxide 24 mmol/L (22-29); Chloride 102 mmol/L (96-108); Creatinine Clr Calc Pharmacy 168.6; Estimated Glomerular Filt Rate > 60; Potassium 3.9 mmol/L (3.3-5.1); Sodium 133 mmol/L (135-145)
[2025-04-25 07:58] VITALS: BP 111/53; PULSE 60; RESP 20; TEMP 36.6; O2SAT 98
[2025-04-25] MEDS: 0.9 % Sodium Chloride Flush 3 ML SYRINGE IVFLUSH (07:58)
--- NOTE | 2025-04-25 09:30 | HO.PM.IMPN ---
Subjective Subjective Date of Service: 04/25/25 Interval History: no complaints Physical Exam Exam: Exam: General: AO X 3, no acute distress Resp: CTA bilateral, no accessory muscles used CVS: S1,S2,RRR GI: soft, non tender, non distended Neuro: motor grossly intact, alert Vital Signs: Vital Signs: Last Vital Signs Temp 97.9 F 04/25/25 07:58 Pulse 60 04/25/25 07:58 Resp 20 04/25/25 07:58 BP 111/53 L 04/25/25 07:58 Pulse Ox 98 04/25/25 07:58 O2 Del Method Room Air 04/25/25 07:58 BMI result Body Mass Index 24.4 Objective Data Active Medications Acetaminophen (Acetaminophen 325 Mg Tablet) 650 mg PO Q6H PRN PRN Reason: Pain, Mild 1-3,fever,headache Calcium Carbonate (Calcium Carbonate 750 Mg Tab.Chew) 750 mg PO Q4H PRN PRN Reason: Heartburn Clonazepam (Clonazepam 0.5 Mg Tablet) 0.5 mg PO TID PRN PRN Reason: Anxiety Enoxaparin Sodium (Enoxaparin Sodium 40 Mg/0.4 Ml Syringe) 40 mg SUBCUT Q24H [facility] Last Admin: 04/25/25 07:58 Dose: Not Given Documented By: CORBY Non-Admin Reason: Patient Refused Fluoxetine HCl (Fluoxetine Hcl 20 Mg Capsule) 120 mg PO DAILY [facility] Last Admin: 04/25/25 07:56 Dose: 120 mg Documented By: CORBY Dextrose (D5w) 1,000 mls @ 75 mls/hr IVCONT .[id number] [facility] Last Admin: 04/24/25 22:02 Dose: 75 mls/hr Documented By: PATRICK Magnesium Hydroxide (Milk Of Magnesia 30 Ml Oral.Susp) 30 ml PO DAILY PRN PRN Reason: Constipation Melatonin (Melatonin 3 Mg Tablet) 6 mg PO BEDTIME PRN PRN Reason: Insomnia Ondansetron HCl (Ondansetron Hcl 4 Mg/2 Ml Vial) 4 mg IVPUSH Q8H PRN PRN Reason: Nausea and Vomiting Oxcarbazepine (Oxcarbazepine 300 Mg Tablet) 1,200 mg PO BEDTIME [facility] Last Admin: 04/24/25 22:32 Dose: 1,200 mg Documented By: PATRICK Sodium Chloride (0.9 % Sodium Chloride Flush 3 Ml Syringe) 3 ml IVFLUSH QSHIFT [facility] Last Admin: 04/25/25 07:58 Dose: 3 ml Documented By: CORBY Trazodone HCl (Trazodone Hcl 100 Mg Tablet) 100 mg PO BEDTIME [facility] Last Admin: 04/24/25 22:32 Dose: 100 mg Documented By: PATRICK Labs 04/25/25 06:01 04/25/25 06:01 Labs: Laboratory Results - last 24 hr 04/24/25 04/24/25 04/24/25 11:08 15:34 19:31 MCV MCH MCHC RDW Plt Count MPV Absolute Nucleated RBC Nucleated RBC % (auto) Anion Gap 9 L 14 13 Estim Creat Clear Calc 166.2 132.2 143.7 Estimated GFR > 60 > 60 > 60 Random Glucose 113 147 H 102 Calcium 8.6 9.1 9.2 04/24/25 04/25/25 23:44 06:01 MCV 73.3 L MCH 24.6 L MCHC 33.6 RDW 15.5 Plt Count 250 MPV 8.6 L Absolute Nucleated RBC 0.000 Nucleated RBC % (auto) 0.0 Anion Gap 13 11 L Estim Creat Clear Calc 145.5 168.6 Estimated GFR > 60 > 60 Random Glucose 116 H 93 Calcium 8.9 8.9 Assessment and Plan (1) Acute hyponatremia: Status: Acute Plan 30M PMH ptsd, mood disorder presented with leg edema, found to have hyponatremia 119 acute hyponaremia labs and hsitory consistent with primary polydypsia now complicated by repid correction, on D5w, s/p ddavp, continue to monitor, nephro following mood disorder 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
--- NOTE | 2025-04-25 11:24 | MHC.CM.PN ---
Addendum entered by Karmen Pa 04/25/25 16:27: Pt is medically cleared for discharge home self-care, he will arrange his own transport home today. Addendum entered by Karmen Pa 04/25/25 16:15: This CM placed call to [facility] to verify PCP, they state the pt does not have a PCP assigned to him. This CM met with pt to notify him of this information and suggested he make a follow up call. Additionally, this CM provided the pt with a local list of PCP's as an additional resource. Original Note: Pt self-care, pts lives in a home where he rents a room. Pt will arrange his own transport home at discharge. Education provided on HCP, pt declines to complete one at this time. Pt is unsure of the name of his PCP, states he was assigned one at [facility]
[2025-04-25 11:50] VITALS: BP 123/61; PULSE 77; RESP 20; TEMP 37.1; O2SAT 95
[2025-04-25 15:47] VITALS: BP 153/78; PULSE 78; RESP 18; TEMP 36.4; O2SAT 99
--- NOTE | 2025-04-25 15:57 | PM.DS ---
DS: Providers Provider Date of Service: 04/25/25 Date of admission: 04/24/25 06:46 Date of discharge: 04/25/25 Primary care physician: None Physician Consults: 04/25/25 15:52 Consult to Nephrology Routine Consulting Provider: [facility] Reason for consultation: hpyonatermia DS: Diagnosis Discharge Diagnosis (1) Acute hyponatremia: Status: Acute DS: Summary Hospital Course Hospital Course: from initial hpi: 30-year-old man presented to the ER with complaints of chest pain, lower extremity swelling. He reports that the chest pain started about 2 years ago. It is substernal pain that is worse with activity, no radiation, associated with some shortness of breath with exercise. He reported that he has seen his primary care physician for this and there has been no further follow up. He also reported intermittent right flank pain over the last 2 years as well and again has seen his primary care provider for this. He reported that he started having some leg edema approximately a month ago with no other symptoms. He reported that he does drink a gal to a gal and a half of water a day and has been doing that for many years. He denied any history of hyponatremia previously. He denied any recent travel, prolonged immobilization, history of DVT or PE. He does have a history of depression and is on multiple medications. Initial sodium in the ER was 119, he was started on normal saline with rise of sodium to 124. Urine osmolality 95. Plan is to admit patient for further management and treatment of acute hyponatremia. hospital course: Patient was admitted for acute hyponatremia Labs consistent with primary polydipsia. This was complicated by rapid correction. Was then placed on D5W and DDAVP and correction slowed down patient did not have any signs of pontine myelinolysis. Was seen by Nephrology recommended continuing fluid restriction and discharged home. For mood disorder was continued on Trileptal and fluoxetine. Time Attestation Discharge Coordination Time (in mins): 33 Quality: Safe Use of Opioids Does Pt have an Active Cancer Diagnosis on the Problem List?: No Quality: Stroke Does the patient have a stroke diagnosis?: No Physical Exam Exam: Exam: General: AO X 3, no acute distress Resp: CTA bilateral, no accessory muscles used CVS: S1,S2,RRR GI: soft, non tender, non distended Neuro: motor grossly intact, alert Psych: appropriate affect, appropriate insight Vital Signs: Vital Signs: Last Vital Signs Temp 97.6 F 04/25/25 15:47 Pulse 78 04/25/25 15:47 Resp 18 04/25/25 15:47 BP 153/78 H 04/25/25 15:47 Pulse Ox 99 04/25/25 15:47 O2 Del Method Room Air 04/25/25 15:47 BMI result Body Mass Index 24.4 DS: Data Data Completed and Pending Labs on day of discharge: Laboratory Results - last 24 hr 04/24/25 04/24/25 04/24/25 15:34 19:31 19:31 WBC RBC Hgb Hct MCV MCH MCHC RDW Plt Count MPV Absolute Nucleated RBC Nucleated RBC % (auto) Sodium 131 L 129 L 130 L Potassium 4.5 4.6 Chloride 99 100 Carbon Dioxide 23 22 Anion Gap 14 13 BUN 10 12 Creatinine 0.88 0.81 Estim Creat Clear Calc 132.2 143.7 Estimated GFR > 60 > 60 Random Glucose 147 H 102 Calcium 9.1 9.2 04/24/25 04/25/25 23:44 06:01 WBC 7.2 RBC 4.99 Hgb 12.3 L Hct 36.6 L MCV 73.3 L MCH 24.6 L MCHC 33.6 RDW 15.5 Plt Count 250 MPV 8.6 L Absolute Nucleated RBC 0.000 Nucleated RBC % (auto) 0.0 Sodium 133 L 133 L Potassium 4.1 3.9 Chloride 100 102 Carbon Dioxide 23 24 Anion Gap 13 11 L BUN 13 14 Creatinine 0.80 0.69 Estim Creat Clear Calc 145.5 168.6 Estimated GFR > 60 > 60 Random Glucose 116 H 93 Calcium 8.9 8.9 Discharge Plan Discharge Anticipated Discharge Date/Time: 04/25/25 15:55 Patient Disposition: Home, Self-Care Discharge Diagnosis: hyponatremia Referrals: Physician,None [Primary Care Provider, Medical] - 1 Week Discharge Medications: Continued clonazepam 0.5 mg tablet 0.5 mg PO TID PRN (Reason: Anxiety) fluoxetine 40 mg capsule 120 mg PO DAILY trazodone 100 mg tablet 100 mg PO BEDTIME oxcarbazepine 600 mg tablet 1,200 mg PO BEDTIME loperamide 2 mg Capsule 10 mg PO DAILY Rx Instructions: PATIENT SAYS HE TAKES 10MG EVERY MORNING Discharge Orders: Discharge Order (Routine); Ordered 04/25/25 Ordered By: Mika Kat Diet: Advance to usual diet Activity on Discharge: As tolerated Stand Alone Forms: Patient Portal Discharge page Print Language: Romanian Care Plan Goals: avoid low sodium Health Concerns: low sodium Plan of Treatment: fluid restrict 2L per day Assessment: see above
== END 2025-04-25 16:30 | disposition home or self-care (01) | DRG 426 ==
LOC: HO.ED 06:03 → HO.EDOVER 06:49 → HO.IMC 17:23
PROVIDERS: Internal Medicine Critical Care Medicine; Nurse Practitioner Acute Care; Admitting Provider Hospitalist; Emergency Provider Emergency Medicine; Visit Provider Internal Medicine
DX: E87.1 Hypo-osmolality and hyponatremia (principal); I95.2 Hypotension due to drugs; F32.A Depression, unspecified; T38.895A Adverse effect of other hormones and synthetic substitutes, initial encounter; F42.9 Obsessive-compulsive disorder, unspecified; F43.10 Post-traumatic stress disorder, unspecified; Z79.899 Other long term (current) drug therapy
CPT/HCPCS: 36415; 71045; 80048; 80053; 80307; 81003; 82436; 83540; 83935; 84133; 84295; 84300; 84484; 85025; 85027; 85379; 93005; 99285; J1650; J2597; P9047

== ENCOUNTER → 2025-04-24 02:33 | Outpatient (BNV) | payer OTHER, SELFPAY | PROVIDERS: Admitting Provider Hospitalist; Emergency Provider Emergency Medicine; Visit Provider Internal Medicine Cardiovascular Disease | DX: R07.9 Chest pain, unspecified (principal) | CPT/HCPCS: 93010 ==

== ENCOUNTER → 2025-04-24 03:22 | Outpatient (BNV) | payer OTHER, SELFPAY | PROVIDERS: Emergency Provider Emergency Medicine; Visit Provider Specialist | DX: R07.9 Chest pain, unspecified (principal) | CPT/HCPCS: 71045 ==

== ENCOUNTER → 2025-04-24 06:46 | Outpatient (BNV) | payer OTHER, SELFPAY | PROVIDERS: Admitting Provider Hospitalist; Emergency Provider Emergency Medicine; Visit Provider Internal Medicine Critical Care Medicine | DX: E87.1 Hypo-osmolality and hyponatremia (principal) | CPT/HCPCS: 99222 ==

== ENCOUNTER → 2025-04-24 06:46 | Outpatient (BNV) | payer OTHER, SELFPAY | PROVIDERS: Admitting Provider Hospitalist; Emergency Provider Emergency Medicine; Visit Provider Internal Medicine | DX: E87.1 Hypo-osmolality and hyponatremia (principal) | CPT/HCPCS: 99223; 99239; 99499 ==